=== PATIENT | female | born 1960 ===

== ENCOUNTER 2024-10-18 09:00 | Emergency (ER) | payer OTHER ==
[~2024-10-18] VITALS: Ht 165.1 cm; Wt 66.0 kg
[2024-10-18 09:01] VITALS: O2SAT 98
[2024-10-18] MEDS ORDERED: METH-653 MT (09:22)
[2024-10-18 09:26] VITALS: BP 152/100; PULSE 82; RESP 16; TEMP 36.8; O2SAT 99
== END 2024-10-18 09:37 | disposition home or self-care (01) ==
LOC: ER 09:00
DX: M54.50 Low back pain, unspecified (principal); E03.9 Hypothyroidism, unspecified; I10 Essential (primary) hypertension; Z85.3 Personal history of malignant neoplasm of breast
CPT/HCPCS: 99283; Z7610 ×2; A4606